=== PATIENT | female | born 1940 | race Caucasian/White ===

== ENCOUNTER 2017-09-14 20:58 | Emergency (ER) | payer OTHER ==
[~2017-09-14] VITALS: Ht 152.4 cm; Wt 86.2 kg
--- NOTE | 2017-09-14 21:03 | NUR ---
BB RA FROM HOME FOR CHEST PAIN PRESSURE LIKE 10/10 NON RADIATING. ASA 324, NITRO SPRAY X 3 GIVEN GLUELINE WORKER BY EMS AND 3 NITRO SUBLINGUAL TABLETS TAKEN BY PT GLUELINE WORKER OF EMS CREW. PT IS AAOX4. SKIN WNL. -N/V/D. VSS. RESP EVEN AND UNLABORED. NO S/S OF ACUTE DISTRESS NOTED. PT PLACED ON FLEXIBLE BABYSITTER AND POX. PT SAFETY AND COMFORT MEASURES IN PLACE. PT'S CAREGIVER BEDSIDE. AWAITING MD FOR EVAL.
[2017-09-14] MEDS ORDERED: NITROGLYCERIN PACKET 1 GM PACKET ONE (21:06)
[2017-09-14] MEDS ORDERED: NITROGLYCERIN PACKET 1 GM PACKET TD ONE (21:30)
--- NOTE | 2017-09-14 21:36 | NUR ---
[facility]
--- NOTE | 2017-09-14 21:39 | NUR ---
PT'S BP LOW, NITRO PATCH HELD PER MD;S ORDERS. WILL CONTINUE TO MONITOR PT.
[2017-09-14 21:45] LABS: BASOPHILS # (AUTO) 0.1 /CMM (0.0-0.2); BASOPHILS % (AUTO) 1.2 % (0.0-2.0); EOSINOPHILS % (AUTO) 2.9 % (0.0-6.0); HEMATOCRIT 39 % (33-45); HEMOGLOBIN 12.8 g/dL (11.5-14.8); LYMPHOCYTES # (AUTO) 3.1 /CMM (0.8-4.8); LYMPHOCYTES % (AUTO) 29.2 % (20.0-44.0); MEAN CORPUSCULAR HGB CONC 33 g/dl (31.0-36.0); MEAN CORPUSCULAR VOLUME 85 fL (82-100); MONOCYTES # (AUTO) 0.4 /CMM (0.1-1.30); MONOCYTES % (AUTO) 4.1 % (2.0-12.0); NEUTROPHILS # (AUTO) 6.6 /CMM (1.8-8.9); NEUTROPHILS % (AUTO) 62.6 % (43.0-81.0); PLATELET COUNT (AUTO) 790 /CMM (150-450); RDW COEFFICIENT OF VARIATION 17.6 (11.5-15.0); RED BLOOD CELL COUNT(AUTO) 4.54 MIL/uL (4.0-5.2); WHITE BLOOD COUNT (AUTO) 10.5 K/uL (4.3-11.0)
[2017-09-14 22:19] LABS: INR 1.02 (0.87-1.13)
[2017-09-14 22:21] LABS: CALCIUM, SERUM 8.2 mg/dL (8.5-10.1); CARBON DIOXIDE 19 mmol/L (21-32); CHLORIDE 108 mmol/L (98-107); CREATININE 1.3 mg/dL (0.6-1.3); GLUCOSE 169 mg/dL (74-106); POTASSIUM 4.6 mmol/L (3.5-5.1); SODIUM SERUM 139 mmol/L (136-145); UREA NITROGEN, BLOOD 38 mg/dL (7-18)
[2017-09-14 22:27] LABS: ALANINE AMINOTRANSFERASE 29 U/L (12-78); ALKALINE PHOSPHATASE 128 U/L (46-116); ASPARTATE AMINOTRANSFERASE 57 U/L (15-37); BILIRUBIN,DIRECT 0.1 mg/dL (0.0-0.2); BILIRUBIN,TOTAL 0.2 mg/dL (0.2-1.0); TOTAL PROTEIN, SERUM 7.3 g/dL (6.4-8.2)
[2017-09-14 22:28] LABS: TROPONIN I 0.059 ng/mL (0.00-0.056)
--- NOTE | 2017-09-14 22:57 | NUR ---
[facility] WEINER IS READY FOR CALL BACK
[2017-09-15] MEDS ORDERED: ACETAMINOPHEN 325 MG TABLET ONE (02:30)
--- NOTE | 2017-09-15 03:00 | NUR ---
REPORT GIVEN TO GO CHANG FOR CAROLIN.
[2017-09-15 03:05] VITALS: BP 126/69
--- NOTE | 2017-09-15 03:25 | NUR ---
TRANSPORT CREW BEDSIDE. REPORT GIVEN TO EMS CREW FOR CAROLIN. PT BEING TRANSFERRED ONTO EMS GURNEY. VSS UPON TRANSFER.
--- NOTE | 2017-09-15 03:30 | NUR ---
Patient Tranfers to outside Facility Physician:CHAPARRITA Location:[facility]
== END 2017-09-15 03:30 | disposition short-term general hospital (02) ==
LOC: ER 21:04
DX: R07.89 Other chest pain (principal); I11.0 Hypertensive heart disease with heart failure; I50.9 Heart failure, unspecified
CPT/HCPCS: 36415 ×2; 71045; 80048; 80076; 83880; 84484 ×2; 85025; 85730; 93005 ×2; 99285; A4606; Z7610

== ENCOUNTER 2017-11-10 12:16 | Emergency (ER) | payer OTHER ==
[~2017-11-10] VITALS: Ht 165.1 cm; Wt 85.3 kg
--- NOTE | 2017-11-10 12:20 | NUR ---
[id number] FOR GENERALIZED WEAKNESS, HYPOTESNIVE IN THE FIELD, 250 IV NS GIVEN IN FIELD. BS-182. NAD NOTED, VSS, RESP EVEN AND UNLABORED, PT WAS PUT ON MONITOR, WAITING FOR MD ANDERSON.
[2017-11-10 12:37] LABS: BASOPHILS % (AUTO) 0.4 % (0.0-2.0); EOSINOPHILS % (AUTO) 2.3 % (0.0-6.0); HEMATOCRIT 39 % (33-45); HEMOGLOBIN 12.4 g/dL (11.5-14.8); LYMPHOCYTES # (AUTO) 1.9 /CMM (0.8-4.8); LYMPHOCYTES % (AUTO) 16.3 % (20.0-44.0); MEAN CORPUSCULAR HEMOGLOBIN 28 PG (26.0-33.0); MEAN CORPUSCULAR HGB CONC 32 g/dl (31.0-36.0); MEAN CORPUSCULAR VOLUME 86 fL (82-100); MONOCYTES # (AUTO) 0.5 /CMM (0.1-1.30); MONOCYTES % (AUTO) 4.5 % (2.0-12.0); NEUTROPHILS # (AUTO) 8.8 /CMM (1.8-8.9); NEUTROPHILS % (AUTO) 76.5 % (43.0-81.0); PLATELET COUNT (AUTO) 877 /CMM (150-450); RDW COEFFICIENT OF VARIATION 14.1 (11.5-15.0); RED BLOOD CELL COUNT(AUTO) 4.46 MIL/uL (4.0-5.2); WHITE BLOOD COUNT (AUTO) 11.5 K/uL (4.3-11.0)
[2017-11-10] MEDS: IV NS 0.9% 500 ML BAG IV ONE (12:49)
[2017-11-10 12:55] LABS: INR 1.06 (0.85-1.15)
[2017-11-10 12:58] LABS: CALCIUM, SERUM 8.3 mg/dL (8.5-10.1); CARBON DIOXIDE 19 mmol/L (21-32); CHLORIDE 105 mmol/L (98-107); CREATININE 1.3 mg/dL (0.6-1.3); GLUCOSE 178 mg/dL (74-106); POTASSIUM 5.8 mmol/L (3.5-5.1); SODIUM SERUM 132 mmol/L (136-145); UREA NITROGEN, BLOOD 32 mg/dL (7-18)
[2017-11-10 13:04] LABS: ALANINE AMINOTRANSFERASE 81 U/L (12-78); ALBUMIN 2.6 g/dL (3.4-5.0); ALKALINE PHOSPHATASE 131 U/L (46-116); ASPARTATE AMINOTRANSFERASE 132 U/L (15-37); BILIRUBIN,DIRECT 0.1 mg/dL (0.0-0.2); BILIRUBIN,TOTAL 0.4 mg/dL (0.2-1.0); TOTAL PROTEIN, SERUM 6.3 g/dL (6.4-8.2)
[2017-11-10 13:06] LABS: TROPONIN I 0.059 ng/mL (0.00-0.056)
--- NOTE | 2017-11-10 13:22 | NUR ---
URINE SENT TO LAB
[2017-11-10] MEDS ORDERED: IOHEXOL-300 100 ML VIAL IV ONE (13:31)
[2017-11-10] MEDS ORDERED: IV NS 0.9% 250 ML IV ONE (13:31)
[2017-11-10] MEDS ORDERED: CT SWABBABLE VALVE TRANS SET 1 EA INFUS.SET MC ONE (13:31)
[2017-11-10] MEDS ORDERED: SODIUM BICARBONATE SYR 50 MEQ/50 ML DISP.SYRIN ONE (14:31)
[2017-11-10] MEDS: SODIUM BICARBONATE SYR 50 MEQ/50 ML DISP.SYRIN IV ONE (14:40)
[2017-11-10] MEDS ORDERED: ASPIRIN 81 MG TAB.CHEW ONE (14:43)
[2017-11-10] MEDS: ASPIRIN 81 MG TAB.CHEW PO ONE (14:45)
[2017-11-10 15:35] LABS: BILIRUBIN,URINE Negative (NEGATIVE); BLOOD, URINE Trace-intact Ery/uL (NEGATIVE); KETONES,URINE Negative (NEGATIVE); LEUKOCYTE ESTERASE ,URINE Moderate (NEGATIVE); NITRITE, URINE Negative (NEGATIVE); PROTEIN,URINE Negative (NEGATIVE); UGLUCOSE Negative (NEGATIVE); UROBILINOGEN,URINE 0.2 EU/dL (0.2)
[2017-11-10 15:36] LABS: APPEARANCE,URINE SLIGHTLY HAZY (CLEAR); COLOR,URINE Light yellow (YELLOW)
[2017-11-10 15:40] LABS: BACTERIA,URINE Few /HPF (None Seen); RBC,URINE 0-2 /HPF (0-2); SQUAMOUS EPITHELIAL CELL,UR Rare /HPF (None Seen)
--- NOTE | 2017-11-10 16:45 | NUR ---
CALLED [facility] SPOKE WITH JUAN CARLOS, EXPECTING A CALL BACK FROM A [facility]
--- NOTE | 2017-11-10 17:09 | NUR ---
GO HIDALGO CALLED ON THE PHONE WITH SUSHMA SANDOVAL.
[2017-11-10] MEDS: CEFTRIAXONE 1 G in IV NS 0.9% 50 ML IV ONE (18:07)
[2017-11-10] MEDS: CEFTRIAXONE 1GM BAG (ER ONLY) 1 GM/50 ML PIGGYBACK IV ONE (18:07)
[2017-11-10 18:30] VITALS: BP 122/62
--- NOTE | 2017-11-10 18:47 | NUR ---
CALLED [facility] SPOKE WITH OLIVER REGARDING AN UPDATE, STILL WAITING FOR BED PLACEMENT.
--- NOTE | 2017-11-10 19:44 | NUR ---
[facility] [phone] BLS TRANSPORT ETA [id number]
== END 2017-11-10 21:13 | disposition short-term general hospital (02) ==
LOC: ER 12:22
DX: A41.9 Sepsis, unspecified organism (principal); R65.20 Severe sepsis without septic shock; I11.0 Hypertensive heart disease with heart failure; I50.9 Heart failure, unspecified; R79.89 Other specified abnormal findings of blood chemistry; E11.9 Type 2 diabetes mellitus without complications; E87.1 Hypo-osmolality and hyponatremia; E87.5 Hyperkalemia
CPT/HCPCS: 36415; 71045; 74177; 76705; 80048; 80076; 81001; 82962; 83605; 83690; 83880; 84484; 85025; 85730; 87040 ×2; 87077; 87086; 87186; 93005; 96360; 96365; 96375; 99291; A4216; A4606; J0696; J3490; J7040; J7050; Q9967; 81000-TC; Z7610